=== PATIENT | female | born 1945 | race Hispanic/Latino ===

== ENCOUNTER 2017-03-06 15:02 | Observation (INO) | payer MEDICARE, OTHER ==
[2017-03-06 15:02] VITALS: BMI 27.8
[2017-03-06 16:06] LABS: ADD MANUAL DIFF? NO
--- NOTE | 2017-03-06 16:15 | C.PDOC ---
History Of Present Illness 71 y/o female presents to the ED complaining that she has not been feeling well for the last week. She reports some shortness of breath and a "pressure-like" sensation. State that she saw her PMD and he did an EKG and instructed her to come to the ED. Patient denies any nausea, vomiting, dizziness, fever, cough, or other complaints. Time Seen by Provider: 03/06/17 15:37 Chief Complaint (Nursing): Chest Pain History Per: Patient History/Exam Limitations: no limitations Onset/Duration Of Symptoms: Days (7), Persistent Current Symptoms Are (Timing): Still Present Quality: Pressure Recent travel outside of the [place]: No Past Medical History Reviewed: Historical Data, Nursing Documentation, Vital Signs Vital Signs: Last Vital Signs Temp 98.0 F 03/06/17 17:46 Pulse 60 03/06/17 17:46 Resp 20 03/06/17 17:46 BP 126/58 L 03/06/17 17:46 Pulse Ox 98 03/06/17 18:20 - Medical History PMH: Anxiety, Depression, HTN, Hypercholesterolemia Surgical History: Endoscopy - [facility] Procedures CLOSED ENDOSCOPIC BIOPSY OF LARGE INTESTINE (10/03/13) ENDO RECTUM POLYPECTOMY (10/03/13) ESOPHAGOGASTRODUODENOSCOPY [EGD] W/CLOSED BIOPSY (08/22/13) EXCISION OF SIGMOID COLON, ENDO, DIAGN (07/14/16) PERCUTAN NEEDLE BIOPSY OF BREAST (12/06/04) Family History: States: No Known Family Hx - Social History Hx Tobacco Use: No Hx Alcohol Use: No Hx Substance Use: No - Immunization History Hx Tetanus Toxoid Vaccination: No Hx Influenza Vaccination: Yes Hx Pneumococcal Vaccination: No Review Of Systems Except As Marked, All Systems Reviewed And Found Negative. Constitutional: Negative for: Fever Cardiovascular: Positive for: Chest Pain ("pressure") Respiratory: Positive for: Shortness of Breath. Negative for: Cough Gastrointestinal: Negative for: Nausea, Vomiting Neurological: Negative for: Dizziness Physical Exam - Physical Exam Appears: Non-toxic, No Acute Distress Skin: Normal Color, Warm, Dry Head: Atraumatic, Normacephalic Eye(s): bilateral: Normal Inspection, PERRL Oral Mucosa: Moist Neck: Normal ROM, Supple Chest: Symmetrical, No Tenderness Cardiovascular: Rhythm Regular Respiratory: Normal Breath Sounds, No Rales, No Rhonchi, No Wheezing Gastrointestinal/Abdominal: Normal Exam, Soft, No Tenderness Extremity: Normal ROM, No Swelling Neurological/Psych: Oriented x3, Normal Speech, Normal Cognition ED Course And Treatment - Laboratory Results Result Diagrams: 03/06/17 16:05 03/06/17 18:35 ECG: Interpreted By Me ECG Rhythm: Sinus Rhythm Interpretation Of ECG: incomplete RBBB Rate From EC (bpm) O2 Sat by Pulse Oximetry: 98 (ra) Pulse Ox Interpretation: Normal - Other Rad Chest X-Ray X-Ray: Viewed By Me, Read By Radiologist Interpretation: Accession No. : [id number]. Patient Name / ID : PIETER LEBLANC / [id number]. Exam Date : 03/06/2017 16:11:09 ( Approved ). Study Comment : Sex / Age : F / 71Y. Creator : Karli Zambrano V. Dictator : Karli Zambrano V. Traffic Sign Supervisor : Pulp Mill Operator : Karli Zambrano V. Approver2 : Report Date : 03/06/2017 16:20:26. My Comment : . PROCEDURE: CHEST RADIOGRAPH, 1 VIEW. HISTORY: SOB. COMPARISON: 06/08/2016. FINDINGS: LUNGS: Clear. PLEURA: No pneumothorax or pleural fluid seen. CARDIOVASCULAR: Minimal cardiomegaly -similar-appearing. OSSEOUS STRUCTURES: No significant abnormalities. VISUALIZED UPPER ABDOMEN: Normal. OTHER FINDINGS: None. IMPRESSION: No interval change apparent Progress Note: Chest X-Ray, Blood Work, and Urinalysis were ordered. Patient was given Aspirin PO and Xanax PO. the first set of cardiac enzymes was negative. case was d/c hospitalist reduction plant supervisor who accepted patient to [facility] for observation. Disposition - Disposition Disposition: HOSPITALIZED Disposition Time: 19:49 Condition: FAIR - Clinical Impression Clinical Impression: Chest pain in adult - PA / ZIPPER TRIMMER HAND / Resident Statement MD/DO has reviewed & agrees with the documentation as recorded. - Scribe Statement The provider has reviewed the documentation as recorded by the Scribe (Candis Thompson) All medical record entries made by the Scribe were at my direction and personally dictated by me. I have reviewed the chart and agree that the record accurately reflects my personal performance of the history, physical exam, medical decision making, and the department course for this patient. I have also personally directed, reviewed, and agree with the discharge instructions and disposition. Decision To Admit - Pt Status Changed To: Hospital Disposition Of: Observation - . Bed Request Type: Telemetry Admitting Physician: Marilyn Salomon Patient Diagnosis: Chest pain in adult
--- NOTE | 2017-03-06 16:22 | RAD ---
PROCEDURE: CHEST RADIOGRAPH, 1 VIEW HISTORY: SOB COMPARISON: 06/08/2016 FINDINGS: LUNGS: Clear PLEURA: No pneumothorax or pleural fluid seen. CARDIOVASCULAR: Minimal cardiomegaly -similar-appearing OSSEOUS STRUCTURES: No significant abnormalities. VISUALIZED UPPER ABDOMEN: Normal. OTHER FINDINGS: None. IMPRESSION: No interval change apparent
[2017-03-06 16:31] LABS: BASO % 0.3 % (0.0-2.0); EOS % 0.3 % (0.0-4.0); HEMATOCRIT 39.9 % (34.0-47.0); LYMPH # 1.3 K/uL (1.0-4.3); LYMPH % 16.4 % (20.0-40.0); MEAN CELL VOLUME 85.6 fL (81.0-99.0); MEAN CORPUSCULAR HEMOGLOBIN 28.4 pg (27.0-31.0); MEAN CORPUSCULAR HGB CONC 33.1 g/dL (33.0-37.0); MEAN PLATELET VOLUME 8.1 fL (7.2-11.7); MONO # 0.6 K/uL (0.0-0.8); PLATELET COUNT 303 K/uL (130-400); RED CELL DISTRIBUTION WIDTH 13.8 % (11.5-14.5)
[2017-03-06 17:06] LABS: PARTIAL THROMBOPLASTIN TIME 30 SECONDS (21-34)
[2017-03-06 17:23] LABS: RBC URINE < 1 /hpf (0-3); URINE BILIRUBIN NEGATIVE (NEGATIVE); URINE BLOOD NEGATIVE (NEGATIVE); URINE COLOR Yellow (YELLOW); URINE GLUCOSE (UA) NORMAL (Normal); URINE KETONE TRACE mg/dL (NEGATIVE); URINE LEUKOCYTE ESTERASE NEG Leu/uL (Negative); URINE PROTEIN NEGATIVE (NEGATIVE); URINE UROBILINOGEN NORMAL mg/dL (0.2-1.0); WBC URINE 1 /hpf (0-5)
--- NOTE | 2017-03-06 17:25 | CP.PCM.CON ---
<Osbaldo Holloway - Last Filed: 03/06/17 17:15> History of Present Illness - History of Present Illness History of Present Illness: Cardiology Consultation Note Dr. Dhillon CC: Chest pain x 1 week HPI: This is a 71 year old female with PMH notable for HLD, HTN, and anxiety presenting for cardiac evaluation of chest pain x 1 week. The patient reports have constant chest pain and SOB. The patient reports no prior issues with chest pain. The patient was sent to the ED via EMS by PMD. The patient reports that the chest pain is non-radiating and left sided. The patient denies change in the quality of her pain with change in position, respiration, and palpation. The patient reports that the pain has remitted with 4 aspirin 81mg tabs (given in the ED) and a sublingual spray which was administered by EMS en route. The patient notes that she does not have an associated cough with the shortness of breath. The patient notes that her dyspnea is worse with exertion. Prior to 1 week ago, the patient notes no ambulatory restrictions. The patient presently denies syncopal episodes, difficulty with ADL/IADLs, and diaphoresis. The patient appears comfortable at this time. The patient denies fever, chills, headache, palpitations, cough, abdominal pain, N/V/D/C, changes in bowel/bladder, and extremity edema/paresthesias. PMH: HLD, HTN, anxiety Surgery history: eye surgery x 8 (cataracts, retina reattachment) Allergy: penicillin (rash) Social: denies alcohol, tobacco, illicit drug use Review of Systems - Review of Systems All systems: reviewed and no additional remarkable complaints except - Constitutional Constitutional: absent: Chills, Fatigue, Fever - EENT Eyes: absent: Blurred Vision, Change in Vision Ears: absent: Decreased Hearing, Tinnitus Nose/Mouth/Throat: absent: Nose Pain, Facial Pain, Neck Pain - Cardiovascular Cardiovascular: Chest Pain, Chest Pain at Rest, Chest Pain with Activity, Dyspnea, Dyspnea on Exertion. absent: Edema, Leg Edema, Lightheadedness, Orthopnea, Palpitations, Syncope - Respiratory Respiratory: Dyspnea, Dyspnea on Exertion. absent: Cough, Pain on Inspiration, Chest Congestion, Excessive Mucous Production, Pain with Coughing - Gastrointestinal Gastrointestinal: absent: Abdominal Pain, Constipation, Diarrhea, Nausea, Vomiting - Genitourinary Genitourinary: absent: Change in Urinary Stream, Difficulty Urinating - Musculoskeletal Musculoskeletal: absent: Limited Range of Motion, Stiffness, Tingling - Integumentary Integumentary: absent: Lesions, Rash, Wounds - Neurological Neurological: absent: Frequent Falls, Memory Loss, Sensory Deficit, Syncope, Tingling, Tremor, Vertigo, Weakness - Psychiatric Psychiatric: Anxiety, Depression - Endocrine Endocrine: absent: Cold Intolorance, Heat Intolorance, Polydipsia, Polyphagia Past Patient History - Infectious Disease Hx of Infectious Diseases: None - Tetanus Immunizations Tetanus Immunization: Unknown - Past Medical History & Family History Past Medical History?: Yes - Past Social History Smoking Status: Never Smoked - CARDIAC Hx Hypercholesterolemia: Yes Hx Hypertension: Yes - PULMONARY Hx Respiratory Disorders: No - NEUROLOGICAL Hx Neurological Disorder: No - HEENT Hx HEENT Problems: Yes Other/Comment: detached retina - ENDOCRINE/METABOLIC Hx Endocrine Disorders: No - INTEGUMENTARY Hx Dermatological Problems: No - GASTROINTESTINAL Hx Gastrointestinal Disorders: Yes Hx Gastroesophageal Reflux: Yes - GENITOURINARY/GYNECOLOGICAL Hx Genitourinary Disorders: No - PSYCHIATRIC Hx Anxiety: Yes Hx Depression: Yes Hx Substance Use: No - SURGICAL HISTORY Hx Surgeries: No - ANESTHESIA Hx Anesthesia: Yes Hx Anesthesia Reactions: No Hx Malignant Hyperthermia: No Meds Allergies/Adverse Reactions: Allergies Allergy/AdvReac Type Severity Reaction Status Date / Time Penicillins Allergy Intermediate RASH Verified 10/24/16 11:38 Physical Exam - Constitutional Appears: Well, No Acute Distress - Head Exam Head Exam: ATRAUMATIC, NORMAL INSPECTION, NORMOCEPHALIC - Eye Exam Eye Exam: EOMI, Normal appearance Pupil Exam: NORMAL ACCOMODATION - ENT Exam ENT Exam: Mucous Membranes Moist, Normal Exam - Neck Exam Neck exam: Positive for: Full Rom, Normal Inspection. Negative for: Lymphadenopathy, Tenderness - Respiratory Exam Respiratory Exam: Clear to Auscultation Bilateral, NORMAL BREATHING PATTERN. absent: Chest Wall Tenderness, Decreased Breath Sounds, Rales, Rhonchi, Wheezes , Respiratory Distress - Cardiovascular Exam Cardiovascular Exam: REGULAR RHYTHM, RRR, +S1, +S2. absent: Diastolic murmur, Irregular Rhythm, Systolic Murmur - GI/Abdominal Exam GI & Abdominal Exam: Normal Bowel Sounds, Soft. absent: Distended, Firm, Guarding, Tenderness - Extremities Exam Extremities exam: Positive for: full ROM, normal capillary refill, normal inspection, pedal pulses present. Negative for: calf tenderness, joint swelling , pedal edema, tenderness - Back Exam Back exam: NORMAL INSPECTION. absent: CVA tenderness (L), CVA tenderness (R) - Neurological Exam Neurological exam: Alert, CN II-XII Intact, Oriented x3 - Psychiatric Exam Psychiatric exam: Normal Affect, Normal Mood - Skin Skin Exam: Dry, Intact, Normal Color, Warm Results - Vital Signs Recent Vital Signs: Last Vital Signs Temp 97.8 F 03/06/17 15:10 Pulse 60 03/06/17 15:10 Resp 18 03/06/17 15:10 BP 133/64 03/06/17 15:10 Pulse Ox 98 03/06/17 16:43 - Labs Result Diagrams: 03/06/17 16:05 03/06/17 16:05 Labs: Laboratory Results - last 24 hr 03/06/17 03/06/17 03/06/17 16:05 16:05 16:05 WBC 8.0 RBC 4.66 Hgb 13.2 Hct 39.9 MCV 85.6 MCH 28.4 MCHC 33.1 RDW 13.8 Plt Count 303 MPV 8.1 Lymph % (Auto) 16.4 L Frontier % (Auto) 7.0 Eos % (Auto) 0.3 Baso % (Auto) 0.3 Lymph # 1.3 Frontier # 0.6 Eos # 0.0 Baso # 0.0 PT 10.9 INR APTT 30 D-Dimer, Quantitative < 200 CK-MB (Mass) 0.83 03/06/17 16:05 WBC RBC Hgb Hct MCV MCH MCHC RDW Plt Count MPV Lymph % (Auto) Frontier % (Auto) Eos % (Auto) Baso % (Auto) Lymph # Frontier # Eos # Baso # PT 10.9 INR 1.0 APTT 30 D-Dimer, Quantitative < 200 CK-MB (Mass) Assessment & Plan (1) Chest pain Assessment and Plan: Repeat SHERLY and EKG at 00:00 and 08:00 Echo ordered Nuclear Stress Test Tomorrow Aspirin 81mg PO Daily telemetric monitoring ED SHERLY Pending CK-MB 0.83 (normal) 03/06/17 CXR- no acute pulmonary pathology, no interval change from prior examinations 07/15/16 EKG- sinus bradycardia, normal intervals, physiologic axis, incomplete RBBB Case Discussed with Dr. Jacquie Holloway PGY1 Status: Acute - Date & Time Date: 03/06/17 Time: 17:45 <Kwan Dhillon - Last Filed: 03/28/17 12:15> Results - Vital Signs Recent Vital Signs: Last Vital Signs Temp 98.0 F 03/07/17 15:35 Pulse 78 03/07/17 15:35 Resp 18 03/07/17 15:35 BP 131/77 03/07/17 15:35 Pulse Ox 97 03/07/17 15:35 - Labs Result Diagrams: 03/07/17 07:16 03/07/17 07:16 Attending/Attestation - Attestation I have personally seen and examined this patient.: Yes I have fully participated in the care of the patient.: Yes I have reviewed all pertinent clinical information: Yes Notes (Text): 03/28/17 12:15 chest pain eval follow enzymes schedule stress
[2017-03-06 18:37] LABS: ALB/GLOB RATIO 1.4 (1.0-2.1); BLOOD UREA NITROGEN 23 mg/dL (7-17); CALCIUM 8.9 mg/dl (8.6-10.4); CARBON DIOXIDE 27 mmol/L (22-30); CHLORIDE 102 mmol/L (98-107); GFR AFRICAN-AMERICAN > 60; GLUCOSE,RANDOM 93 mg/dL (65-105); POTASSIUM 3.7 mmol/L (3.6-5.2); SODIUM 139 mmol/L (132-148); TOTAL PROTEIN 6.7 g/dL (6.3-8.3)
[2017-03-06 18:38] LABS: ALKALINE PHOSPHATASE 71 U/L (38-126); ALT/SGPT 23 U/L (9-52); AST/SGOT 23 U/L (14-36); BILIRUBIN,TOTAL 0.9 mg/dL (0.2-1.3)
--- NOTE | 2017-03-06 21:00 | CP.PCM.HP ---
<Hamzah Gonzales - Last Filed: 03/07/17 05:59> History of Present Illness - History of Present Illness History of Present Illness: CC: Chest pain x 1 week HPI: This is a 71 year old female with PMH notable for HLD, HTN, and anxiety presenting for cardiac evaluation of chest pain x 1 week. The patient reports have constant chest pain and SOB. The patient reports no prior issues with chest pain. The patient was sent to the ED via EMS by PMD. The patient reports that the chest pain is non-radiating and left sided. The patient denies change in the quality of her pain with change in position, respiration, and palpation. The patient reports that the pain has remitted with 4 aspirin 81mg tabs (given in the ED) and a sublingual spray which was administered by EMS en route. The patient notes that she does not have an associated cough with the shortness of breath. The patient notes that her dyspnea is worse with exertion. Prior to 1 week ago, the patient notes no ambulatory restrictions. The patient presently denies syncopal episodes, difficulty with ADL/IADLs, and diaphoresis. The patient appears comfortable at this time. The patient denies fever, chills, headache, palpitations, cough, abdominal pain, N/V/D/C, changes in bowel/bladder, and extremity edema/paresthesias. PMHx: HLD, HTN, anxiety, constipation PSHx: eye surgery x 8 (cataracts, retina reattachment) Meds: see emr Allergy: penicillin (rash) FamHx: unknown Social: denies ETOH, tobacco, illicit drug use PMD: none Present on Admission - Present on Admission Any Indicators Present on Admission: No Review of Systems - Review of Systems All systems: reviewed and no additional remarkable complaints except Review of Systems: - Constitutional Constitutional: absent: Chills, Fatigue, Fever - EENT Eyes: absent: Blurred Vision, Change in Vision Ears: absent: Decreased Hearing, Tinnitus Nose/Mouth/Throat: absent: Nose Pain, Facial Pain, Neck Pain - Cardiovascular Cardiovascular: Chest Pain, Chest Pain at Rest, Chest Pain with Activity, Dyspnea, Dyspnea on Exertion. absent: Edema, Leg Edema, Lightheadedness, Orthopnea, Palpitations, Syncope - Respiratory Respiratory: Dyspnea, Dyspnea on Exertion. absent: Cough, Pain on Inspiration, Chest Congestion, Excessive Mucous Production, Pain with Coughing - Gastrointestinal Gastrointestinal: absent: Abdominal Pain, Constipation, Diarrhea, Nausea, Vomiting - Genitourinary Genitourinary: absent: Change in Urinary Stream, Difficulty Urinating - Musculoskeletal Musculoskeletal: absent: Limited Range of Motion, Stiffness, Tingling - Integumentary Integumentary: absent: Lesions, Rash, Wounds - Neurological Neurological: absent: Frequent Falls, Memory Loss, Sensory Deficit, Syncope, Tingling, Tremor, Vertigo, Weakness - Psychiatric Psychiatric: Anxiety, Depression - Endocrine Endocrine: absent: Cold Intolorance, Heat Intolorance, Polydipsia, Polyphagia Past Patient History - Infectious Disease Hx of Infectious Diseases: None - Tetanus Immunizations Tetanus Immunization: Unknown - Past Medical History & Family History Past Medical History?: Yes - Past Social History Smoking Status: Never Smoked - CARDIAC Hx Hypercholesterolemia: Yes Hx Hypertension: Yes - PULMONARY Hx Respiratory Disorders: No - NEUROLOGICAL Hx Neurological Disorder: No - HEENT Hx HEENT Problems: Yes Other/Comment: detached retina - ENDOCRINE/METABOLIC Hx Endocrine Disorders: No - INTEGUMENTARY Hx Dermatological Problems: No - GASTROINTESTINAL Hx Gastrointestinal Disorders: Yes Hx Gastroesophageal Reflux: Yes - GENITOURINARY/GYNECOLOGICAL Hx Genitourinary Disorders: No - PSYCHIATRIC Hx Anxiety: Yes Hx Depression: Yes Hx Substance Use: No - SURGICAL HISTORY Hx Surgeries: No - ANESTHESIA Hx Anesthesia: Yes Hx Anesthesia Reactions: No Hx Malignant Hyperthermia: No Meds Allergies/Adverse Reactions: Allergies Allergy/AdvReac Type Severity Reaction Status Date / Time Penicillins Allergy Intermediate RASH Verified 10/24/16 11:38 Physical Exam - Additional Findings Additional findings: - Constitutional Appears: Well, No Acute Distress - Head Exam Head Exam: ATRAUMATIC, NORMAL INSPECTION, NORMOCEPHALIC - Eye Exam Eye Exam: EOMI, Normal appearance Pupil Exam: NORMAL ACCOMODATION - ENT Exam ENT Exam: Mucous Membranes Moist, Normal Exam - Neck Exam Neck exam: Positive for: Full Rom, Normal Inspection. Negative for: Lymphadenopathy, Tenderness - Respiratory Exam Respiratory Exam: Clear to Auscultation Bilateral, NORMAL BREATHING PATTERN. absent: Chest Wall Tenderness, Decreased Breath Sounds, Rales, Rhonchi, Wheezes , Respiratory Distress - Cardiovascular Exam Cardiovascular Exam: REGULAR RHYTHM, RRR, +S1, +S2. absent: Diastolic murmur, Irregular Rhythm, Systolic Murmur - GI/Abdominal Exam GI & Abdominal Exam: Normal Bowel Sounds, Soft. absent: Distended, Firm, Guarding, Tenderness - Extremities Exam Extremities exam: Positive for: full ROM, normal capillary refill, normal inspection, pedal pulses present. Negative for: calf tenderness, joint swelling , pedal edema, tenderness - Back Exam Back exam: NORMAL INSPECTION. absent: CVA tenderness (L), CVA tenderness (R) - Neurological Exam Neurological exam: Alert, CN II-XII Intact, Oriented x3 - Psychiatric Exam Psychiatric exam: Normal Affect, Normal Mood - Skin Skin Exam: Dry, Intact, Normal Color, Warm Results - Vital Signs Recent Vital Signs: Last Vital Signs Temp 98.0 F 03/06/17 17:46 Pulse 67 03/06/17 20:15 Resp 18 03/06/17 20:15 BP 133/55 L 03/06/17 20:15 Pulse Ox 96 03/06/17 20:15 - Labs Result Diagrams: 03/06/17 16:05 03/06/17 18:35 Assessment & Plan - Assessment and Plan (Free Text) Assessment: Chest pain -Repeat SHERLY and EKG at 00:00 and 08:00 -SHERLY negative x2 -Echo ordered -Nuclear Stress Test / Elaina scan Tomorrow -Aspirin 81mg PO Daily -telemetric monitoring -03/06/17 CXR- no acute pulmonary pathology, no interval change from prior examinations -07/15/16 EKG- sinus bradycardia, normal intervals, physiologic axis, incomplete RBBB (current EKG similar). Hypertension -BP 133/64 on admission -Norvasc 10mg PO qd Hyperlipidemia -f/u FLP -Crestor 10mg PO HS Anxiety -Patient comfortable, not currently anxious -Xanax 1mg PO HS -Lamictal 25mg PO HS Hx Constipation -Colace 100mg PO BID Hx Cataracts -Prednisolone 1% OU BID Prophylaxis SCDs Protonix 40mg PO ACB PRN Heart healthy diet - Date & Time Date: 03/06/17 Time: 20:15 <Berry Yost - Last Filed: 03/07/17 06:16> Results - Vital Signs Recent Vital Signs: Last Vital Signs Temp 97.9 F 03/07/17 04:00 Pulse 64 03/07/17 04:00 Resp 20 03/07/17 04:00 BP 104/60 03/07/17 04:00 Pulse Ox 96 03/07/17 04:00 - Labs Result Diagrams: 03/06/17 16:05 03/06/17 18:35 Labs: Laboratory Results - last 24 hr 03/07/17 00:29 Total Creatine Kinase 62 CK-MB (Mass) 0.98 Troponin I, Quant < 0.0120 Assessment & Plan - Date & Time Date: 03/07/17 (I have seen and examined the patient. I agree with the findings and plan of care as documented by Dr. Gonzales. Patient with chest pain. History of hypertension and hyperlipidemia. Continue home meds. Aspirin and Statin. ROMIx3 with EKG. Consult to Cardio. For stress test. 2D Echo. Also with anxiety. Continue home meds. Monitor on tele for acute changes.) Time: 06:14 Attending/Attestation - Attestation I have personally seen and examined this patient.: Yes I have fully participated in the care of the patient.: Yes I have reviewed all pertinent clinical information: Yes
[2017-03-07] MEDS ORDERED: Potassium Chloride 20 mEq ER Tab PO ONE ×2 (00:38→23:14)
[2017-03-07 07:35] LABS: BASO % 0.6 % (0.0-2.0); EOS # 0.1 K/uL (0.0-0.7); EOS % 1.3 % (0.0-4.0); LYMPH # 1.6 K/uL (1.0-4.3); LYMPH % 22.9 % (20.0-40.0); MEAN CELL VOLUME 85.8 fL (81.0-99.0); MEAN CORPUSCULAR HEMOGLOBIN 27.8 pg (27.0-31.0); MEAN CORPUSCULAR HGB CONC 32.4 g/dL (33.0-37.0); MONO # 0.6 K/uL (0.0-0.8); MONO % 8.5 % (0.0-10.0); RED CELL DISTRIBUTION WIDTH 14.1 % (11.5-14.5); WHITE BLOOD COUNT 6.9 K/uL (4.8-10.8)
[2017-03-07 07:44] LABS: CHLORIDE 104 mmol/L (98-107); POTASSIUM 4.1 mmol/L (3.6-5.2); SODIUM 139 mmol/L (132-148)
[2017-03-07 07:46] LABS: ALB/GLOB RATIO 1.4 (1.0-2.1); ALKALINE PHOSPHATASE 55 U/L (38-126); AST/SGOT 22 U/L (14-36); BILIRUBIN,TOTAL 1.5 mg/dL (0.2-1.3); BLOOD UREA NITROGEN 18 mg/dL (7-17); CARBON DIOXIDE 26 mmol/L (22-30); CHOLESTEROL 180 mg/dL (0-199); GFR AFRICAN-AMERICAN > 60; TOTAL PROTEIN 6.5 g/dL (6.3-8.3)
[2017-03-07 07:47] LABS: ALT/SGPT 11 U/L (9-52); CALCIUM 8.8 mg/dl (8.6-10.4); GLUCOSE,RANDOM 87 mg/dL (65-105); MAGNESIUM 2.2 mg/dL (1.6-2.3); PHOSPHOROUS 3.7 mg/dL (2.5-4.5)
--- NOTE | 2017-03-07 09:47 | CP.PCM.PN ---
<Osbaldo Holloway - Last Filed: 03/07/17 14:01> Subjective - Date & Time of Evaluation Date of Evaluation: 03/07/17 Time of Evaluation: 09:43 - Subjective Subjective: Cardiology Progress Note Dr. Dhillon Patient seen and examined at the bedside. No acute distress. No acute events overnight. Nursing staff reports no issues. Patient is for nuclear stress test this morning at 8am. The patient has no cardiopulmonary complaints this morning. The patient reports resolution of her chest pain. 12 point review of systems was preformed and returned negative for acute complaints. Objective - Vital Signs/Intake and Output Vital Signs (last 24 hours): Temp Pulse Resp BP Pulse Ox 98.7 F 57 L 20 144/75 97 03/07/17 07:05 03/07/17 07:05 03/07/17 07:05 03/07/17 07:05 03/07/17 07:05 Intake and Output: 03/07/17 03/07/17 06:59 18:59 Intake Total 210 Balance 210 - Medications Medications: Current Medications Alprazolam (Xanax) 1 mg PO [facility] Last Admin: 03/06/17 22:25 Dose: 1 mg Amlodipine Besylate (Norvasc) 10 mg PO DAILY [facility] Aspirin (Ecotrin) 81 mg PO DAILY [facility] Docusate Sodium (Colace) 100 mg PO BID [facility] Last Admin: 03/07/17 00:47 Dose: 100 mg Enoxaparin Sodium (Lovenox) 40 mg SC DAILY [facility] Lamotrigine (Lamictal) 25 mg PO [facility] Last Admin: 03/06/17 22:25 Dose: 25 mg Pantoprazole Sodium (Protonix Ec Tab) 40 mg PO ACB PRN PRN Reason: Indigestion / Heartburn Prednisolone Acetate (Pred Forte 1% Opht Susp) 0 ml OU BID [facility] Rosuvastatin Calcium (Crestor) 10 mg PO [facility] Last Admin: 03/06/17 22:25 Dose: 10 mg - Labs Labs: 03/07/17 07:16 03/07/17 07:16 PT 10.9 SECONDS (9.7-12.2) 03/06/17 16:05 INR 1.0 03/06/17 16:05 APTT 30 SECONDS (21-34) 03/06/17 16:05 - Additional Findings Additional findings: - Constitutional Appears: Well, No Acute Distress - Head Exam Head Exam: ATRAUMATIC, NORMAL INSPECTION, NORMOCEPHALIC - Eye Exam Eye Exam: EOMI, Normal appearance Pupil Exam: NORMAL ACCOMODATION - ENT Exam ENT Exam: Mucous Membranes Moist, Normal Exam - Neck Exam Neck exam: Positive for: Full Rom, Normal Inspection. Negative for: Lymphadenopathy, Tenderness - Respiratory Exam Respiratory Exam: Clear to Auscultation Bilateral, NORMAL BREATHING PATTERN. absent: Chest Wall Tenderness, Decreased Breath Sounds, Rales, Rhonchi, Wheezes , Respiratory Distress - Cardiovascular Exam Cardiovascular Exam: REGULAR RHYTHM, RRR, +S1, +S2. absent: Diastolic murmur, Irregular Rhythm, Systolic Murmur - GI/Abdominal Exam GI & Abdominal Exam: Normal Bowel Sounds, Soft. absent: Distended, Firm, Guarding, Tenderness - Extremities Exam Extremities exam: Positive for: full ROM, normal capillary refill, normal inspection, pedal pulses present. Negative for: calf tenderness, joint swelling , pedal edema, tenderness - Back Exam Back exam: NORMAL INSPECTION. absent: CVA tenderness (L), CVA tenderness (R) - Neurological Exam Neurological exam: Alert, CN II-XII Intact, Oriented x3 - Psychiatric Exam Psychiatric exam: Normal Affect, Normal Mood - Skin Skin Exam: Dry, Intact, Normal Color, Warm Assessment and Plan (1) Chest pain Assessment & Plan: Troponin Negative x 3 (<0.0120 > <0.0120 > 0.0160) Echo- prelim EF 81%- official read pending Stress Test- preliminary normal Aspirin 81mg PO Daily Patient cardiac stable at this point Continue Crestor 10mg PO HS Continue Norvasc 10mg PO Daily CK-MB 0.83 (normal) 03/06/17 CXR- no acute pulmonary pathology, no interval change from prior examinations 03/06/17 23:33 EKG- Sinus Bradycardia, normal intervals, physiologic axis, incomplete RBBB 03/06/17 15:15 EKG- NSR, normal intervals, physiologic axis, incomplete RBBB 07/15/16 EKG- sinus bradycardia, normal intervals, physiologic axis, incomplete RBBB Case Discussed with Dr. Jacquie Holloway PGY1 Status: Acute <Kwan Dhillon - Last Filed: 03/28/17 12:16> Objective - Vital Signs/Intake and Output Vital Signs (last 24 hours): Temp Pulse Resp BP Pulse Ox 98.0 F 78 18 131/77 97 03/07/17 15:35 03/07/17 15:35 03/07/17 15:35 03/07/17 15:35 03/07/17 15:35 - Labs Labs: 03/07/17 07:16 03/07/17 07:16 PT 10.9 SECONDS (9.7-12.2) 03/06/17 16:05 INR 1.0 03/06/17 16:05 APTT 30 SECONDS (21-34) 03/06/17 16:05 Attending/Attestation - Attestation I have personally seen and examined this patient.: Yes I have fully participated in the care of the patient.: Yes I have reviewed all pertinent clinical information, including history, physical exam and plan: Yes Notes (Text): 03/28/17 12:16 Pt for nuclear stress to rule out ischemia as a source of pt cp
[2017-03-07] MEDS ORDERED: Pantoprazole 40 mg EC Tab PO PRN (10:00)
[2017-03-07] MEDS ORDERED: Enoxaparin 40 mg Syringe SC SCH (10:00)
[2017-03-07] MEDS ORDERED: PrednisoLONE 1% Opht Susp(5 ml) OU SCH (10:00)
[2017-03-07 16:07] VITALS: BP 131/77; PULSE 78; RESP 18; TEMP 98; O2SAT 97
--- NOTE | 2017-03-07 17:56 | CP.PCM.DIS ---
<José Miguel Willson - Last Filed: 03/07/17 22:16> Provider - Provider Date of Admission: 03/06/17 18:46 Attending physician: Marilyn Salomon DO Time Spent in preparation of Discharge (in minutes): 35 Diagnosis - Discharge Diagnosis (1) Chest pain Status: Acute Hospital Course - Lab Results Lab Results: Most Recent Lab Values WBC 6.9 K/uL (4.8-10.8) 03/07/17 07:16 RBC 4.66 Mil/uL (3.80-5.20) 03/07/17 07:16 Hgb 13.0 g/dL (11.0-16.0) 03/07/17 07:16 Hct 40.0 % (34.0-47.0) 03/07/17 07:16 MCV 85.8 fL (81.0-99.0) 03/07/17 07:16 MCH 27.8 pg (27.0-31.0) 03/07/17 07:16 MCHC 32.4 g/dL (33.0-37.0) L 03/07/17 07:16 RDW 14.1 % (11.5-14.5) 03/07/17 07:16 Plt Count 291 K/uL (130-400) 03/07/17 07:16 MPV 8.0 fL (7.2-11.7) 03/07/17 07:16 Neut % (Auto) 66.7 % (50.0-75.0) 03/07/17 07:16 Lymph % (Auto) 22.9 % (20.0-40.0) 03/07/17 07:16 [place] % (Auto) 8.5 % (0.0-10.0) 03/07/17 07:16 Eos % (Auto) 1.3 % (0.0-4.0) 03/07/17 07:16 Baso % (Auto) 0.6 % (0.0-2.0) 03/07/17 07:16 Neut # 4.6 K/uL (1.8-7.0) 03/07/17 07:16 Lymph # 1.6 K/uL (1.0-4.3) 03/07/17 07:16 [place] # 0.6 K/uL (0.0-0.8) 03/07/17 07:16 Eos # 0.1 K/uL (0.0-0.7) 03/07/17 07:16 Baso # 0.0 K/uL (0.0-0.2) 03/07/17 07:16 PT 10.9 SECONDS (9.7-12.2) 03/06/17 16:05 INR 1.0 03/06/17 16:05 APTT 30 SECONDS (21-34) 03/06/17 16:05 D-Dimer, Quantitative < 200 ng/mlDDU (0-243) 03/06/17 16:05 Sodium 139 mmol/L (132-148) 03/07/17 07:16 Potassium 4.1 mmol/L (3.6-5.2) 03/07/17 07:16 Chloride 104 mmol/L (98-107) 03/07/17 07:16 Carbon Dioxide 26 mmol/L (22-30) 03/07/17 07:16 Anion Gap 13 (10-20) 03/07/17 07:16 BUN 18 mg/dL (7-17) H 03/07/17 07:16 Creatinine 0.5 MG/DL (0.7-1.2) L 03/07/17 07:16 Est GFR ( Amer) > 60 03/07/17 07:16 Est GFR (Non-Af Amer) > 60 03/07/17 07:16 Random Glucose 87 mg/dL (65-105) 03/07/17 07:16 Hemoglobin A1c 5.9 % (4.2-6.5) 03/07/17 07:16 Calcium 8.8 mg/dl (8.6-10.4) 03/07/17 07:16 Phosphorus 3.7 mg/dL (2.5-4.5) 03/07/17 07:16 Magnesium 2.2 mg/dL (1.6-2.3) 03/07/17 07:16 Total Bilirubin 1.5 mg/dL (0.2-1.3) H 03/07/17 07:16 AST 22 U/L (14-36) 03/07/17 07:16 ALT 11 U/L (9-52) 03/07/17 07:16 Alkaline Phosphatase 55 U/L (38-126) 03/07/17 07:16 Total Creatine Kinase 68 U/L (30-135) 03/07/17 07:16 CK-MB (Mass) 0.76 ng/mL (0.0-3.38) 03/07/17 07:16 Troponin I < 0.0120 ng/mL (0.00-0.120) 03/06/17 18:35 Troponin I, Quant 0.0160 ng/mL (0.00-0.120) 03/07/17 07:16 NT-Pro-B Natriuret Pep 170 pg/mL (0-900) 03/06/17 18:35 Total Protein 6.5 g/dL (6.3-8.3) 03/07/17 07:16 Albumin 3.8 g/dL (3.5-5.0) 03/07/17 07:16 Globulin 2.7 gm/dL (2.2-3.9) 03/07/17 07:16 Albumin/Globulin Ratio 1.4 (1.0-2.1) 03/07/17 07:16 Triglycerides 88 mg/dL (0-149) D 03/07/17 07:16 Cholesterol 180 mg/dL (0-199) 03/07/17 07:16 LDL Cholesterol Direct 77 mg/dL (0-129) 03/07/17 07:16 HDL Cholesterol 74 mg/dL (30-70) H 03/07/17 07:16 Urine Color Yellow (YELLOW) 03/06/17 17:21 Urine Clarity Clear (Clear) 03/06/17 17:21 Urine pH 5.0 (5.0-8.0) 03/06/17 17:21 Ur Specific [place] 1.023 (1.003-1.030) 03/06/17 17:21 Urine Protein Negative mg/dL (NEGATIVE) 03/06/17 17:21 Urine Glucose (UA) Normal mg/dL (Normal) 03/06/17 17:21 Urine Ketones Trace mg/dL (NEGATIVE) 03/06/17 17:21 Urine Blood Negative (NEGATIVE) 03/06/17 17:21 Urine Nitrate Negative (NEGATIVE) 03/06/17 17:21 Urine Bilirubin Negative (NEGATIVE) 03/06/17 17:21 Urine Urobilinogen Normal mg/dL (0.2-1.0) 03/06/17 17:21 Ur Leukocyte Esterase Neg Kennedy/uL (Negative) 03/06/17 17:21 Urine WBC (Auto) 1 /hpf (0-5) 03/06/17 17:21 Urine RBC (Auto) < 1 /hpf (0-3) 03/06/17 17:21 - Hospital Course Hospital Course: 71 year old female with PMH notable for HLD, HTN, and anxiety presented for cardiac evaluation of chest pain x 1 week. Initial cardiac workup including EKG , chest xray, and serial troponins were negative for ACS. She was then sent for a cardiac stress test, which also came back negative. Echocardiogram showed an EF of 81%. Per cardiology pt. was cardiac stable and discharged with instructions to follow up with her primary care within one week and Dr. Chanda Quinonez in 2 weeks. This is a brief account of her stay, for more details please refer to her chart. - Date & Time of H&P Date of H&P: 03/07/17 Time of H&P: 14:00 Discharge Exam - Head Exam Head Exam: ATRAUMATIC, NORMAL INSPECTION, NORMOCEPHALIC - Eye Exam Eye Exam: EOMI, Normal appearance - ENT Exam ENT Exam: Mucous Membranes Moist - Neck Exam Neck exam: Full Rom - Respiratory Exam Respiratory Exam: Clear to PA & Lateral, NORMAL BREATHING PATTERN, UNREMARKABLE - Cardiovascular Exam Cardiovascular Exam: REGULAR RHYTHM, +S1, +S2. absent: JVD - GI/Abdominal Exam GI & Abdominal Exam: Normal Bowel Sounds, Soft, Unremarkable. absent: Tenderness - Extremities Exam Extremities exam: full ROM - Back Exam Back exam: FULL ROM - Neurological Exam Neurological exam: Alert, CN II-XII Intact, Normal Gait, Oriented x3, Reflexes Normal - Psychiatric Exam Psychiatric exam: Normal Affect, Normal Mood - Skin Skin Exam: Dry, Intact, Normal Color, Warm Discharge Plan - Follow Up Plan Condition: FAIR Disposition: HOME/ ROUTINE Instructions: Chest Pain (DC), Heart Healthy Diet (DC) Additional Instructions: Pt. is medically stable for discharge. Please follow up with your primary care doctor within 1 week. Please follow up with Dr. Gutierrez Quinonez in office within 2 weeks. Thank you for allowing us to take part in your care. Referrals: Kwan Dhillon MD [Staff Provider] - <Raffy Malloy - Last Filed: 03/08/17 15:35> Provider - Provider Date of Admission: 03/06/17 18:46 Attending physician: Marilyn Salomon DO Diagnosis - Discharge Diagnosis (1) Chest pain Status: Acute Hospital Course - Lab Results Lab Results: Most Recent Lab Values WBC 6.9 K/uL (4.8-10.8) 03/07/17 07:16 RBC 4.66 Mil/uL (3.80-5.20) 03/07/17 07:16 Hgb 13.0 g/dL (11.0-16.0) 03/07/17 07:16 Hct 40.0 % (34.0-47.0) 03/07/17 07:16 MCV 85.8 fL (81.0-99.0) 03/07/17 07:16 MCH 27.8 pg (27.0-31.0) 03/07/17 07:16 MCHC 32.4 g/dL (33.0-37.0) L 03/07/17 07:16 RDW 14.1 % (11.5-14.5) 03/07/17 07:16 Plt Count 291 K/uL (130-400) 03/07/17 07:16 MPV 8.0 fL (7.2-11.7) 03/07/17 07:16 Neut % (Auto) 66.7 % (50.0-75.0) 03/07/17 07:16 Lymph % (Auto) 22.9 % (20.0-40.0) 03/07/17 07:16 [place] % (Auto) 8.5 % (0.0-10.0) 03/07/17 07:16 Eos % (Auto) 1.3 % (0.0-4.0) 03/07/17 07:16 Baso % (Auto) 0.6 % (0.0-2.0) 03/07/17 07:16 Neut # 4.6 K/uL (1.8-7.0) 03/07/17 07:16 Lymph # 1.6 K/uL (1.0-4.3) 03/07/17 07:16 [place] # 0.6 K/uL (0.0-0.8) 03/07/17 07:16 Eos # 0.1 K/uL (0.0-0.7) 03/07/17 07:16 Baso # 0.0 K/uL (0.0-0.2) 03/07/17 07:16 PT 10.9 SECONDS (9.7-12.2) 03/06/17 16:05 INR 1.0 03/06/17 16:05 APTT 30 SECONDS (21-34) 03/06/17 16:05 D-Dimer, Quantitative < 200 ng/mlDDU (0-243) 03/06/17 16:05 Sodium 139 mmol/L (132-148) 03/07/17 07:16 Potassium 4.1 mmol/L (3.6-5.2) 03/07/17 07:16 Chloride 104 mmol/L (98-107) 03/07/17 07:16 Carbon Dioxide 26 mmol/L (22-30) 03/07/17 07:16 Anion Gap 13 (10-20) 03/07/17 07:16 BUN 18 mg/dL (7-17) H 03/07/17 07:16 Creatinine 0.5 MG/DL (0.7-1.2) L 03/07/17 07:16 Est GFR ( Amer) > 60 03/07/17 07:16 Est GFR (Non-Af Amer) > 60 03/07/17 07:16 Random Glucose 87 mg/dL (65-105) 03/07/17 07:16 Hemoglobin A1c 5.9 % (4.2-6.5) 03/07/17 07:16 Calcium 8.8 mg/dl (8.6-10.4) 03/07/17 07:16 Phosphorus 3.7 mg/dL (2.5-4.5) 03/07/17 07:16 Magnesium 2.2 mg/dL (1.6-2.3) 03/07/17 07:16 Total Bilirubin 1.5 mg/dL (0.2-1.3) H 03/07/17 07:16 AST 22 U/L (14-36) 03/07/17 07:16 ALT 11 U/L (9-52) 03/07/17 07:16 Alkaline Phosphatase 55 U/L (38-126) 03/07/17 07:16 Total Creatine Kinase 68 U/L (30-135) 03/07/17 07:16 CK-MB (Mass) 0.76 ng/mL (0.0-3.38) 03/07/17 07:16 Troponin I < 0.0120 ng/mL (0.00-0.120) 03/06/17 18:35 Troponin I, Quant 0.0160 ng/mL (0.00-0.120) 03/07/17 07:16 NT-Pro-B Natriuret Pep 170 pg/mL (0-900) 03/06/17 18:35 Total Protein 6.5 g/dL (6.3-8.3) 03/07/17 07:16 Albumin 3.8 g/dL (3.5-5.0) 03/07/17 07:16 Globulin 2.7 gm/dL (2.2-3.9) 03/07/17 07:16 Albumin/Globulin Ratio 1.4 (1.0-2.1) 03/07/17 07:16 Triglycerides 88 mg/dL (0-149) D 03/07/17 07:16 Cholesterol 180 mg/dL (0-199) 03/07/17 07:16 LDL Cholesterol Direct 77 mg/dL (0-129) 03/07/17 07:16 HDL Cholesterol 74 mg/dL (30-70) H 03/07/17 07:16 Urine Color Yellow (YELLOW) 03/06/17 17:21 Urine Clarity Clear (Clear) 03/06/17 17:21 Urine pH 5.0 (5.0-8.0) 03/06/17 17:21 Ur Specific [place] 1.023 (1.003-1.030) 03/06/17 17:21 Urine Protein Negative mg/dL (NEGATIVE) 03/06/17 17:21 Urine Glucose (UA) Normal mg/dL (Normal) 03/06/17 17:21 Urine Ketones Trace mg/dL (NEGATIVE) 03/06/17 17:21 Urine Blood Negative (NEGATIVE) 03/06/17 17:21 Urine Nitrate Negative (NEGATIVE) 03/06/17 17:21 Urine Bilirubin Negative (NEGATIVE) 03/06/17 17:21 Urine Urobilinogen Normal mg/dL (0.2-1.0) 03/06/17 17:21 Ur Leukocyte Esterase Neg [place]/uL (Negative) 03/06/17 17:21 Urine WBC (Auto) 1 /hpf (0-5) 03/06/17 17:21 Urine RBC (Auto) < 1 /hpf (0-3) 03/06/17 17:21 Attending/Attestation - Attestation I have personally seen and examined this patient.: Yes I have fully participated in the care of the patient.: Yes I have reviewed all pertinent clinical information, including history, physical exam and plan: Yes Notes (Text): 03/08/17 15:31 Patient was seen and examined at bedside She is status post cardiac cath with normal coronaries She is cleared for discharge to home by cardiology on her home medication. I agree with the above discharge note by the resident with the necessary amendments.
--- NOTE | 2017-03-11 08:24 | CARD ---
APPROVED REPORT Protocol: TIANA Test Type: Stress Nuclear Test Indications: CP Medical History: CP Target HR: 150 bpm Resting ECG: normal Resting Heart Rate: 67 bpm Resting Blood Pressure: /mmHg submaximum (85%): 128 bpm TEST SUMMARY [id number]:01..1.067/.0. PRETESTWARM-UP00:221.00.01.267/.0. EXERCISESTAGE 103:001.710.04.011546/80.0. EXERCISESTAGE 203:[id number]/80.0. EXERCISESTAGE 300:[id number]/80.0. KSLIJQFV13:[id number]/80.0. POST EXERCISE Reason for Termination: PROTOC AL COMPLETED Fatigue Target HR: No Max HR: 96 bpm 67% of Maximum Predicted HR: 150 bpm Exercise duration: 06:06 min:sec, 3 Stage Exercise capacity: 7.2METs Max Blood Pressure: 136/80mmHg Blood Pressure response to exercise: normal resting BP - appropriate response Heart Rate response to exercise: appropriate Chest Pain: No, none Angina index: 0 Arrhythmia: No, none ST Change: No, none Deviation: 0 mm INTERPRETATION Stress EKG Conclusion: NL EST NUCLEAR PENDING EXAM: Myocardial Perfusion STRESS/REST Imaging Protocol The imaging protocol used to acquire images was Stress Tc-99m/rest Tc-99m 1 day Rest Spect myocardial perfusion imaging was performed in supine position 45 minutes following the injection of 30.3 mCi of Tc-99 Myoview. Gated Stress Spect was performed 45 minutes after intravenous 13.1 mCi Tc-99 Myoview injection. The images were gated to evaluate regional wall motion and calculate ventricular ejection fraction.Images were reconstructed using backfilter projection method in short horizontal and verticle long axis. Spect slices were generated. RESTING DATA EDV79.93dvOG6.20L/min ESV23.00mlMyocardial Nebd776.00g Av. Heart Rate56.00bpm EF71.00% STRESS DATA EDV81.81siDV2.80L/min ESV22.00mlMyocardial Ndti195.00g EF73.00% Regional WT score at stress:0.00 Regional WM score at stress:0.00 Summed WT score at stress:1.00 Av. Heart Rate65.00bpmSummed WM score at stress:2.00 LV Perf. Quant 17 Seg. SSS0.00 17 Seg. SRS0.00 17 Seg. SDS0.00 Stress Defect Extent (% LAD)0.00Rest Defect Extent (% LAD)0.00Rev. Defect Extent (% LAD)0.00 Stress Defect Extent (% LCX)0.00Rest Defect Extent (% LCX)0.00Rev. Defect Extent (% LCX)0.00 Stress Defect Extent (% RCA)0.00Rest Defect Extent (% RCA)0.00Rev. Defect Extent (% RCA)0.00 Stress Defect Extent (% SAEID)0.00Rest Defect Extent (% SAEID)0.00Rev. Defect Extent (% SAEID)0.00 Other Information Quality:Good Overall Exercise Capacity: Good IMPRESSION Normal Myocardial Perfusion exercise stress study Global LV Function: Normal Stress Test Summary: Normal LV Perfusion Summary: Normal Metabolism/Perfusion There are no defects. Conclusion 1. The stress and resting images show normal perfusion.
--- NOTE | 2017-03-13 23:52 | CARD ---
APPROVED REPORT EKG Measurement Heart [id number] [place] 162P33 [id number]-[id number] <Conclusion> Sinus bradycardia Incomplete right bundle branch block Borderline ECG
--- NOTE | 2017-03-22 12:55 | CARD ---
APPROVED REPORT EKG Measurement Heart Huhb02LEVK [place] 140P34 [id number]-[id number] <Conclusion> Normal sinus rhythm Incomplete right bundle branch block Borderline ECG
--- NOTE | 2017-03-27 10:10 | CARD ---
APPROVED REPORT EXAM: Two-dimensional and M-mode echocardiogram with Doppler and color Doppler. Other Information Quality : GoodRhythm : INDICATION Dyspnea Chest Pain RISK FACTORS Hypertension Hyperlipidemia M-Mode DIMENSIONS RVDd2.33 (2.1-3.2cm)Left Atrium (MM)4.06 (2.5-4.0cm) IVSd0.97 (0.7-1.1cm)Aortic Root2.78 (2.2-3.7cm) LVDd5.17 (4.0-5.6cm)Aortic Cusp Exc.2.19 (1.5-2.0cm) PWd0.80 (0.7-1.1cm)FS (%) 50 % LVDs2.60 (2.0-3.8cm)LVEF (%)81 (>50%) Mitral Valve MV E Nrjkpmmc20.1cm/sMV A Wvufbpmx62.9cm/sE/A ratio0.9 TDI E/Lateral E'0.0E/Medial E'0.0 Tricuspid Valve TR Peak Ayewbtiv645jm/sTR Peak Gr.74foGwYQHH58lyGm <Conclusion> Left ventricle: thickness: normal; size: normal; overall ejection fraction: 65%: diastolic filling pressures: normal Mitral valve: annulus: normal: leaflets: normal: excursion: normal; no significant trans-mitral gradient: mild incompetence: left atrium:dilated Aortic valve: leaflets:mild calcific thickening, questionable monile densities attached to the ventrciular surface of the right coronary cusp likely artifactual; if clinicall relevant would obtain a ABEBA and or repeat aortic doppler studies; excursion: normal; indeterminate trans-aortic gradient: No significant incompetence: aortic root: normal Right sided Structures: Pulmonary valve: normal; no significant incompetence; Tricuspid valve: normal; no significant incompetence: Intra-cardiac hemodynamics: pulmonary systolic pressures: 36mmhg; central venous pressures: normal No pericardial effusion
== END 2017-03-07 16:00 | disposition home or self-care (01) ==
LOC: C.ER 15:02 → C.9E 18:46 → C.6T 20:06
PROVIDERS: ADMIT Hospitalist; ATTEND Hospitalist
DX: R07.9 Chest pain, unspecified (principal); E78.00 Pure hypercholesterolemia, unspecified; F41.9 Anxiety disorder, unspecified; I10 Essential (primary) hypertension
CPT/HCPCS: 36415; 71010; 78452; 80053; 80061; 81001; 82550; 82553; 83036; 83735; 83880; 84100; 84484; 85025; 85378; 85610; 85730; 93005; 93017; 93306; 99285; A9502; G0378; J1650

== ENCOUNTER 2017-04-05 07:13 | Emergency (ER) | payer MEDICARE, OTHER ==
[2017-04-05 07:13] VITALS: BMI 27.8
[2017-04-05 07:16] VITALS: TEMP 98.7; O2SAT 99
--- NOTE | 2017-04-05 08:11 | C.PDOC ---
History Of Present Illness 71 y/o female presents to ED requesting cast for left wrist. Patient fell x4 days ago and was seen by PMD on 04/02/17 where xrays were done and Fracture was present. Patient has follow up with orthopedic on 04/10/17. Patient denies any other complaints at this time Time Seen by Provider: 04/05/17 07:38 Chief Complaint (Nursing): Upper Extremity Problem/Injury History Per: Patient History/Exam Limitations: no limitations Onset/Duration Of Symptoms: Days Current Symptoms Are (Timing): Still Present Past Medical History Reviewed: Historical Data, Nursing Documentation, Vital Signs Vital Signs: Last Vital Signs Temp 98.7 F 04/05/17 07:15 Pulse 62 04/05/17 08:47 Resp 18 04/05/17 08:47 BP 128/75 04/05/17 08:47 Pulse Ox 99 04/05/17 09:17 - Medical History PMH: Anxiety, Depression, HTN, Hypercholesterolemia Surgical History: Endoscopy - [facility] Procedures CLOSED ENDOSCOPIC BIOPSY OF LARGE INTESTINE (10/03/13) ENDO RECTUM POLYPECTOMY (10/03/13) ESOPHAGOGASTRODUODENOSCOPY [EGD] W/CLOSED BIOPSY (08/22/13) EXCISION OF SIGMOID COLON, ENDO, DIAGN (07/14/16) PERCUTAN NEEDLE BIOPSY OF BREAST (12/06/04) Family History: States: No Known Family Hx - Social History Hx Tobacco Use: No Hx Alcohol Use: No Hx Substance Use: No - Immunization History Hx Tetanus Toxoid Vaccination: Yes Hx Influenza Vaccination: Yes Hx Pneumococcal Vaccination: No Review Of Systems Constitutional: Negative for: Fever, Chills Skin: Negative for: Rash Neurological: Negative for: Headache, Dizziness Physical Exam - Physical Exam Appears: Non-toxic, No Acute Distress Skin: Normal Color, Warm Head: Atraumatic, Normacephalic Eye(s): bilateral: Normal Inspection Neck: Normal ROM Cardiovascular: Rhythm Regular Respiratory: Normal Breath Sounds, No Rales, No Rhonchi, No Wheezing Extremity: No Normal ROM (Painful ROM), Tenderness (Ecchymosis tenderness to radial left wrist), Capillary Refill (<2 seconds), Swelling, Other Pulses: Left Radial: Normal, Right Radial: Normal ED Course And Treatment O2 Sat by Pulse Oximetry: 99 Orthopedic Time Out: Side verified, Site verified Procedure: Splint Type: Volar Location: Left, Wrist Consent obtained: Verbal Performed by: Mid-level Provider Diagnosis: Fracture Type: Closed, Minimally displaced, Comminuted Location: Distal Bone: Radius Capillary refill: Normal Capillary Refill: Normal Distal Sensation: Normal Medical Decision Making Medical Decision Making: Patient fell 4 days ago ands ustained left wrist injury. Patient has Xray disk from [facility] radiology. Xrays reviewed by me showing comminuted impacted distal radial fracture mildly displaced and minimally angulated. Orthoglass volar splint applied by me, NV intact. Arm sling applied. Patient has scheduled orthopedic follow up for next week 04/10/17. Disposition Counseled Patient/Family Regarding: Diagnosis, Need For Followup - Disposition Referrals: Julio Zamora [Staff Provider] - Disposition: HOME/ ROUTINE Disposition Time: 08:10 Condition: STABLE Additional Instructions: Please make sure to follow up with orthopedic next week A splint has been applied which is a temporary cast. Do not wet splint, keep out of bath, and consider plastic bag. Take pain medication as needed. Seek medical attention if develop any numbness or pins and needle sensation. Instructions: Wrist Fracture in Adults (ED) - POA Present On Arrival: None - Clinical Impression Clinical Impression: Distal radial fracture - PA / [employer] / Resident Statement MD/DO has reviewed & agrees with the documentation as recorded. - Scribe Statement The provider has reviewed the documentation as recorded by the Richard Chappell All medical record entries made by the [place] were at my direction and personally dictated by me. I have reviewed the chart and agree that the record accurately reflects my personal performance of the history, physical exam, medical decision making, and the department course for this patient. I have also personally directed, reviewed, and agree with the discharge instructions and disposition.
[2017-04-05 08:48] VITALS: BP 128/75; PULSE 62; RESP 18
== END 2017-04-05 08:48 | disposition home or self-care (01) ==
LOC: C.ER 07:13
DX: S52.502G Unspecified fracture of the lower end of left radius, subsequent encounter for closed fracture with delayed healing (principal); W19.XXXD Unspecified fall, subsequent encounter

== ENCOUNTER 2017-04-05 12:59 | Emergency (ER) | payer MEDICARE, OTHER ==
[2017-04-05 13:00] VITALS: BMI 27.8
--- NOTE | 2017-04-05 14:18 | C.PDOC ---
History Of Present Illness 71 y/o female presents with cc of left arm splint too tight; was seen in ED earlier for wrist fracture and had splint applied. no numbness or tingling to fingers, feels tight in midforearm area. Time Seen by Provider: 04/05/17 14:10 History Per: Patient History/Exam Limitations: no limitations Onset/Duration Of Symptoms: Days (1) Current Symptoms Are (Timing): Still Present Quality: Tightness Recent travel outside of the [place]: No Past Medical History - Medical History PMH: Anxiety, Depression, HTN, Hypercholesterolemia Denies: Chronic Kidney Disease Surgical History: Endoscopy - [facility] Procedures CLOSED ENDOSCOPIC BIOPSY OF LARGE INTESTINE (10/03/13) ENDO RECTUM POLYPECTOMY (10/03/13) ESOPHAGOGASTRODUODENOSCOPY [EGD] W/CLOSED BIOPSY (08/22/13) EXCISION OF SIGMOID COLON, ENDO, DIAGN (07/14/16) PERCUTAN NEEDLE BIOPSY OF BREAST (12/06/04) Family History: States: Unknown Family Hx - Social History Hx Tobacco Use: No Hx Alcohol Use: No Hx Substance Use: No - Immunization History Hx Tetanus Toxoid Vaccination: Yes Hx Influenza Vaccination: Yes Hx Pneumococcal Vaccination: No Review Of Systems Musculoskeletal: Positive for: Arm Pain Neurological: Negative for: Weakness, Numbness Physical Exam - Physical Exam Appears: Non-toxic, No Acute Distress Skin: Warm, Dry Extremity: Other (left arm with reverse sugar tong splint- fingertips with normal cap refill; feels tight at proximal end of splint. ) Medical Decision Making Medical Decision Making: Pt arrived with reverse sugar tong splint applied earlier today in another ER visit for wrist fracture. pt reports splint too tight. splint removed and re- applied more loosely, pt eels much better. sensation intact, +2 radial pulse, cap refill less than 2 secinds before and after splint change. Disposition Counseled Patient/Family Regarding: Need For Followup - Disposition Disposition: HOME/ ROUTINE Disposition Time: 14:14 Condition: IMPROVED Additional Instructions: Keep splint on until you see the orthopedist on . Keep splint clean and Dry - cover with plastic when bathing. Keep arm elevated when possible. Return to ER for any worsening symptoms., Instructions: Splint Care (ED) - Clinical Impression Clinical Impression: Wrist pain, acute
== END 2017-04-05 14:35 | disposition home or self-care (01) ==
LOC: C.ER 12:59
DX: M25.532 Pain in left wrist (principal)

== ENCOUNTER 2017-06-11 14:44 | Emergency (ER) | payer MEDICARE, OTHER ==
[2017-06-11 14:44] VITALS: BMI 27.8
[2017-06-11 14:57] VITALS: BP 146/71; PULSE 74; RESP 20; TEMP 98.3; O2SAT 97
--- NOTE | 2017-06-11 16:29 | C.PDOC ---
History Of Present Illness 71 y/o female with Hx of Depression presents to ED with complaints of feeling depressed for 1 month. At ED patient is requesting medication but is unclear of the medication she takes. Patient denies suicidal ideation, homicidal ideation, fever, chills, n/v/d or any other complaints at this time. Time Seen by Provider: 06/11/17 15:34 Chief Complaint (Nursing): Psychiatric Evaluation History Per: Patient History/Exam Limitations: no limitations Onset/Duration Of Symptoms: Days Current Symptoms Are (Timing): Still Present Associated Symptoms: Depression Past Medical History Reviewed: Historical Data, Nursing Documentation, Vital Signs Vital Signs: Last Vital Signs Temp 98.3 F 06/11/17 14:54 Pulse 74 06/11/17 14:54 Resp 20 06/11/17 14:54 BP 146/71 06/11/17 14:54 Pulse Ox 97 06/11/17 16:32 - Medical History PMH: Anxiety, Depression, HTN, Hypercholesterolemia Surgical History: Endoscopy - [facility] Procedures CLOSED ENDOSCOPIC BIOPSY OF LARGE INTESTINE (10/03/13) ENDO RECTUM POLYPECTOMY (10/03/13) ESOPHAGOGASTRODUODENOSCOPY [EGD] W/CLOSED BIOPSY (08/22/13) EXCISION OF SIGMOID COLON, ENDO, DIAGN (07/14/16) PERCUTAN NEEDLE BIOPSY OF BREAST (12/06/04) Family History: States: Unknown Family Hx - Social History Hx Tobacco Use: No Hx Alcohol Use: No Hx Substance Use: No - Immunization History Hx Tetanus Toxoid Vaccination: Yes Hx Influenza Vaccination: Yes Hx Pneumococcal Vaccination: No Review Of Systems Except As Marked, All Systems Reviewed And Found Negative. Constitutional: Negative for: Fever, Chills Gastrointestinal: Negative for: Nausea, Vomiting, Diarrhea Psych: Positive for: Depression. Negative for: Suicidal ideation Physical Exam - Physical Exam Appears: Combative, Agitated Skin: Warm Head: Atraumatic, Normacephalic Oral Mucosa: Moist Cardiovascular: Rhythm Regular, No Murmur Respiratory: Normal Breath Sounds, No Rales, No Rhonchi, No Wheezing Gastrointestinal/Abdominal: Soft, No Tenderness, No Distention, No Rebound Extremity: Normal ROM, Capillary Refill (<2 seconds) Neurological/Psych: Oriented x3, Normal Speech, Normal Cognition ED Course And Treatment O2 Sat by Pulse Oximetry: 97 (RA) Pulse Ox Interpretation: Normal Reevaluation Time: 17:31 Reassessment Condition: Improved - Physician Consult Information Outcome Of Conversation: 1530 and 1730: d/w Crisi Evaluators. pt seems to be at baseline. no acute issues. outpatient f/u organized. Medical Decision Making Medical Decision Making: anxiety/depression Disposition Doctor Will See Patient In The: Office Counseled Patient/Family Regarding: Studies Performed, Diagnosis - Disposition Disposition: HOME/ ROUTINE Disposition Time: 17:32 Condition: GOOD Forms: [email or web address] (Czech) - Clinical Impression Clinical Impression: Anxiety, Depression - Scribe Statement The provider has reviewed the documentation as recorded by the Chicoibpearl Chappell All medical record entries made by the Richard were at my direction and personally dictated by me. I have reviewed the chart and agree that the record accurately reflects my personal performance of the history, physical exam, medical decision making, and the department course for this patient. I have also personally directed, reviewed, and agree with the discharge instructions and disposition.
== END 2017-06-11 17:38 | disposition home or self-care (01) ==
LOC: C.ER 14:44
DX: F41.9 Anxiety disorder, unspecified (principal); F32.9 Major depressive disorder, single episode, unspecified

== ENCOUNTER 2019-03-24 08:09 | Outpatient (CLI) | payer MEDICARE, SELFPAY | END 2019-03-24 08:10 | disposition home or self-care (01) | LOC: C.LAB 08:09 | DX: E78.2 Mixed hyperlipidemia (principal) ==